=== PATIENT | male | born 1960 | race Caucasian/White ===

== ENCOUNTER 2024-01-26 22:12 | Observation (INO) | payer BC, SELFPAY ==
[2024-01-26 15:57] VITALS: BP 121/77
--- NOTE | 2024-01-26 18:23 | ED.GENMED ---
History of Present Illness
General
Chief Complaint: Fall
Source: patient
Exam Limitations: none
Time Seen by Provider: 01/26/24 18:02
History of Present Illness
History of Present Illness:
64-year-old male presents after a fall last evening. He was helping his dog get outside and he hit his head on the radiator. He lost a significant amount of blood at home secondary to laceration to his superior scalp. He is on Plavix. There is
potential loss of consciousness. He notes a slight headache and slight neck pain. No other complaints
Past History
Past History
ED Past Medical History: CAD, HTN, Hypercholesterolemia and AL
ED Past Surgical History: Cardiac (cath w/ 3 stents), Cholecystectomy and Other (RIH repair as child)
Social History
Tobacco: Non-smoker
Personal:
Living: with family
Employment: Employed
Phy Exam
Physical Exam
Physical Exam:
General: Well-appearing male no acute respiratory distress
HEENT: Normocephalic 10 cm flap type laceration superior posterior scalp. No active bleeding but large clots noted in the wound pupils equal round reactive to light
Heart: Regular rate and rhythm no murmur
Lungs: Clear no wheeze
Neurologic exam: Alert and oriented x 3
Musculoskeletal exam: Mild diffuse paraspinous tenderness about the cervical spine no deformities to the extremities
Course
Orders/Labs/Results
Orders:
Orders
01/26/24 15:35
CT Head W/o Iv Contrast Urgent
Comment: denies loc
Reason For Exam: fell last night and hit head. pt on plavix
01/26/24 15:39
CT Cervical Spine W/o Iv Contr Urgent
Comment:
Reason For Exam: fell hit head and c/o neck discomfort
01/26/24 18:25
Complete Blood Count/With Diff Urgent
Comprehensive Metabolic Panel Urgent
01/26/24 18:55
Electrocardiogram (*1) Urgent
Reason for Study: Other
Other Reason for Exam: Hyperkalemia
EKG- Treatment ONCE
01/26/24 19:01
Protime/PTT Urgent
01/26/24 19:33
Furosemide [Lasix] 40 mg IV NOW STA
01/27/24 00:05
Potassium Urgent
Comment: draw 4 hours after furosemide administered
01/27/24 06:00
Sodium Zirconium Cyclosilicate [Lokelma] 10 gram PO TID@0600,1400,1800
01/27/24 08:00
Nicotine [Nicoderm Transdermal] 21 mg TRANSDERM DAILY
Abnormal Lab Results
01/26/24
18:25
WBC 17.5 H 10^3/uL
(4.8-10.8)
RBC 3.41 L 10^6/uL
(4.70-6.10)
Hgb 11.5 L g/dL
(13.0-18.0)
Hct 31.0 L %
(39.0-52.0)
MCH 33.7 H pg
(27.0-31.0)
MCHC 37.1 H g/dL
(33.0-37.0)
Abs Immat Gran (auto) 0.1 H 10^3/uL
(0-0.05)
Absolute Neuts (auto) 14.9 H 10^3/uL
(1.4-6.5)
Absolute Lymphs (auto) 1.1 L 10^3/uL
(1.2-3.4)
Absolute Monos (auto) 1.0 H 10^3/uL
(0.1-0.6)
Immature Gran % 0.6 H %
(0-0.5)
Neutrophils % 87.0 H %
(42.2-75.2)
Lymphocytes % 6.3 L %
(20.5-51.1)
Sodium 129 L mmol/L
(135-145)
Potassium 6.0 H mmol/L
(3.5-5.1)
Carbon Dioxide 21 L mmol/L
(22-30)
Glucose 140 H mg/dl
(70-99)
01/26/24 18:25
01/26/24 18:25
Vital Signs
Initial and Last Documented VS:
Initial Vital Signs
Temp Pulse Resp BP Pulse Ox
98.6 F 116 20 121/77 96
01/26/24 15:57 01/26/24 15:57 01/26/24 15:57 01/26/24 15:57 01/26/24 15:57
Last Documented Vital Signs
Temp Pulse Resp BP Pulse Ox
98.6 F 116 20 121/77 96
01/26/24 15:57 01/26/24 15:57 01/26/24 15:57 01/26/24 15:57 01/26/24 15:57
MDM/Problems Addressed
Differential Diagnosis Includes:
Fall with scalp laceration. Consider significant blood loss given the pictures family showed me. Will check labs. CT of the head and cervical spine were ordered which are negative for acute traumatic injury. The wound was thoroughly cleansed and
all clot was removed from the wound and closed with skin chelo. This was anesthetized with 1% lidocaine with epinephrine prior to doing so. A total of 11 chelo were placed
Labs pending.
*Critical Care Note
Total Time (30-74mins, 75-104mins- exclusive of procedures): Not Applicable
Update Note
Update Note:
Review of labs demonstrate leukocytosis with a white blood cell count of 17. Hemoglobin 11.5 however potassium is 6.0. EKG shows sinus rhythm without changes otherwise. Ordered Lasix and Corakelma for his potassium admit to hospital for hyperkalemia
ED Attending Note
-
Portions of this chart may have been created with voice recognition software.� Occasional wrong word or��sound alike� substitutions may have occurred due to the inherent limitations of voice recognition software.
Discharge Plan
Departure
Patient Disposition: Admit
Date of Disposition: 01/26/24
Time of Disposition: 19:49
Admit to: Telemetry
Presentation/result/management discussed w/ accepting MD/DO: Hospitalist
Discharge Problem:
Acute hyperkalemia
Prescriptions:
No Action
losartan 50 MG tablet
50 mg PO HS
Patient Comments:
09/18/17 per pt spouse accidentally threw out bottle waiting for insurance approval that is why it hasnt been 3 weeks since the last dose
aspirin 81 MG tablet,delayed release (DR/EC)
81 mg PO HS
metoprolol tartrate 50 MG tablet
50 mg PO HS
Patient Comments:
09/18/17 rx for metoprolol tartrate 50mg BID , but patient only takes onet tablet at bedtime
rosuvastatin 10 MG tablet
10 mg PO HS
Patient Comments:
take 1 tablet by mouth once daily
acetaminophen 325 MG tablet
650 mg PO Q4HPRN PRN (Reason: mild to moderate pain) Qty: 0 0RF
polyethylene glycol 3350 17 GRAMS powder in packet
17 grams PO DAILYPRN PRN (Reason: constipation) Qty: 0 0RF
ibuprofen 200 MG tablet
400 - 600 mg PO Q6HPRN PRN (Reason: mild to moderate pain) Qty: 0 0RF
amoxicillin-pot clavulanate 1 TABLET tablet
1 tab PO Q12 Qty: 8 0RF
Referrals:
Xavier Tenorio DO [Family Provider] -
Interventions
Interventions:
*Risk Screen - Suicide Last Done: 01/26/24 18:19
*Neglect/Abuse Screening Last Done: 01/26/24 18:19
ED- Fall Risk Assessment Last Done: 01/26/24 19:44
*ED COVID-19 Vaccine History Last Done: 01/26/24 15:57
ED-Musculoskeletal Assessment Last Done: 01/26/24 18:18
ED- Neurological Assessment Last Done: 01/26/24 18:18
ED-Skin Assessment Last Done: 01/26/24 18:18
Discharge Date and Time
Print Language: TELUGU
[2024-01-26 18:36] LABS: % Basophils 0.2 % (0-2); % Eosinophils 0.1 % (0-6); % Immature Granulocytes 0.6 % (0-0.5); % Lymphocytes 6.3 % (20.5-51.1); % Monocytes 5.8 % (1.7-9.3); Absolute Immature Granulocytes 0.1 10^3/uL (0-0.05); Absolute Lymphocytes 1.1 10^3/uL (1.2-3.4); Absolute Neutrophils 14.9 10^3/uL (1.4-6.5); Hemoglobin 11.5 g/dL (13.0-18.0); Mean Corp Hgb Conc. 37.1 g/dL (33.0-37.0); Mean Corpuscular Hgb 33.7 pg (27.0-31.0); Mean Corpuscular Volume 90.9 fL (80.0-94.0); Nucleated Red Blood Cells % 0 % (-); Red Blood Cell Count 3.41 10^6/uL (4.70-6.10); Red Cell Dist. Width 13.2 % (11.5-14.5); White Blood Cell Count 17.5 10^3/uL (4.8-10.8)
[2024-01-26 18:47] LABS: ALT (SGPT) 22 U/L (0-50); AST (SGOT) 24 U/L (17-59); Albumin 4.1 g/dl (3.5-5.0); Alkaline Phosphatase 73 U/L (38-126); Blood Urea Nitrogen 14 mg/dl (9-20); Calcium 9.1 mg/dl (8.4-10.2); Carbon Dioxide 21 mmol/L (22-30); Chloride 98 mmol/L (98-107); Glucose 140 mg/dl (70-99); Sodium 129 mmol/L (135-145); Total Protein 6.4 g/dl (6.3-8.2); eGFR > 60.00
[2024-01-26 19:26] LABS: INR 1.06; PT 13.6 Sec (11.4-14.6)
[2024-01-26 19:27] LABS: APTT 28.5 Sec (23.4-35.0)
[2024-01-26] MEDS: NICODERM TRANSDERMAL 21 MG TRANSDERM (20:22)
--- NOTE | 2024-01-26 20:52 | HPS.HSE ---
Family Physician
-
Family Physician: Xavier Tenorio
Chief Complaint
-
Fall at Home
History of Present Illness
Patient is a 64y M with PMH significant for ASCVD and hypertension who presents to ED complaining of bleeding s/p fall at home. Patient states that he was letting his dog out around 2 AM today when he fell (was pushed forward by his dog) and
struck his head on a metal baseboard. Patient had significant bleeding overnight. He denies any LOC or other areas of injury. Given his marked blood loss overnight patient was encouraged by family to present to the ED today for evaluation.
Patient denies any complaints at present with exception of some head / scalp discomfort at site of injury. No chest pain / dyspnea.
He has known CAD and has had multiple stents - most recent was about 3 1/2 months ago at [facility].
He is supposed to be on ASA and Plavix. He states that he never takes ASA due to easy bruising. He takes Plavix sometimes - his last dose was Sunday of this week.
Medical History
Past Medical History
Past Medical History: Reports Other
Additional Past Medical History:
ASCVD
Hypertension
CASI
Past Surgical History: Reports Other
Additional Past Surgical History:
PTCA with Stents (multiple - most recent 3 1/2 months ago)
Appendectomy
Cholecystectomy
Inguinal Herniorrhaphy
Arthroscopy of the Knee
Social History
Tobacco: Smoker (Current every day smoker. > 40 pack years total use.)
Alcohol: Daily (1-2 drinks daily.)
Drug: None
Family History
Family History: Not pertinent
Allergies / Home Medications
Allergies reflects when Allergies were last updated in [employer].
Home Medications with original date entered in [employer]
Allergy/Medication List:
Allergies
Allergy/AdvReac Type Severity Reaction Status Date / Time
No Known Allergies Allergy Verified 01/26/24 16:03
Home Medications
acetaminophen 325 mg tablet 650 mg (2 x 325 mg) PO Q4HPRN PRN mild to moderate pain #0 tabs 09/18/17
amoxicillin 875 mg-potassium clavulanate 125 mg tablet 1 tab PO Q12 antibiotic #8 tabs 09/18/17
aspirin 81 mg tablet,delayed release 81 mg PO HS 09/18/17
ibuprofen 200 mg tablet 400 - 600 mg (2 - 3 x 200 mg) PO Q6HPRN PRN mild to moderate pain #0 tabs 09/18/17
losartan 50 mg tablet 50 mg PO HS 09/18/17
metoprolol tartrate 50 mg tablet 50 mg PO HS 09/18/17
polyethylene glycol 3350 17 gram oral powder packet 17 grams PO DAILYPRN PRN constipation #0 packets 09/18/17
rosuvastatin 10 mg tablet 10 mg PO HS 09/18/17
Review of Systems
-
History Source: Patient
A 12 point ROS was completed and negative except as noted: Yes
Constitutional: Reports Fatigue; Denies Fever or Chills
Respiratory: Denies Cough or Trouble Breathing
Cardiac: Denies Chest Pain or Palpitations
Abdomen/GI: Denies Abdominal Pain, Nausea, Vomiting or Diarrhea
: Denies Dysuria or Frequency
Skin: Reports Other (Scalp laceration / bleeding.)
Neurological: Denies Dizzy, Headache, Weakness or Numbness
Psych: Denies Depression or Anxiety
Physical Exam
Vital Signs
Vital Signs
Temp Pulse Resp BP Pulse Ox
98.6 F 116 20 121/77 96
01/26/24 15:57 01/26/24 15:57 01/26/24 15:57 01/26/24 15:57 01/26/24 15:57
Physical Exam
General: Other (64y M in no acute distress.)
HEENT: Moist mucous membranes, PERRLA and Other (Large laceration over the apex of the scalp / posteriorly with [address] No evidence of ongoing bleeding.)
Respiratory: Clear; No Wheezes, Rales or Rhonchi
Cardiac: S1/S2 and Regular Rhythm; No Murmur
GI: Soft, Non Tender, Non Distended and Normal Bowel Sounds
Musculoskeletal: No Clubbing, No Cyanosis and No Edema
Neuro: AO x 3
Laboratory Results
-
01/26/24 18:25
01/26/24 18:25
Laboratory Results
PT 13.6 Sec (11.4-14.6) 01/26/24 19:
INR 1.06 01/26/24 19:
APTT 28.5 Sec (23.4-35.0) 01/26/24 19:01
Total Bilirubin 1.0 mg/dl (0.2-1.3) 01/26/24 18:25
AST 24 U/L (17-59) 01/26/24 18:25
ALT 22 U/L (0-50) 01/26/24 18:25
Alkaline Phosphatase 73 U/L (38-126) 01/26/24 18:25
Impression/Plan
-
A/P: Patient is a 64y M with PMH significant for ASCVD and hypertension who presets to ED for evaluation of scalp laceration s/p fall at home.
Fall at Home
Scalp Laceration
Acute Blood Loss Anemia secondary to the above
- Observe overnight for further evaluation and treatment.
- Laceration closed with chelo in the ED - no active bleeding.
- Significant blood loss overnight and suspect Hgb is lower than initial noted 11.5 due to volume contraction.
- Follow H&H and transfuse if needed.
- Hold Plavix.
- CT head and C-Spine in the ED were unremarkable.
Hyperkalemia
Hyponatremia
- Suspect secondary to hypovolemia / volume losses.
- ? if patient is on ARB at home. He is on 'blood pressure med' but does not known the name.
- Would hold for now in any event.
- IVFs overnight and follow for improvement in labs / lytes.
- Monitor on telemetry overnight.
- EKG done in the ED with no changes of hyperkalemia.
ASCVD
- Stable. No chest pain / dyspnea.
- Patient with most recent stent placed within the past 6 months.
- Hold Plavix for now as noted above (patient has been poorly compliant with his prescribed antiplatelets as an outpatient).
- Would continue with ASA 81mg daily for now.
- Reconcile other meds in the AM and resume - except for VISH / ARB as noted above.
Benign Hypertension
- Patient is unsure which BP medication he is currently on.
- Reconcile meds with pharmacy in the AM.
DVT Prophylaxis: SCDs
Code Status: Full
[2024-01-26 22:13] VITALS: BP 136/73
[2024-01-26] MEDS: NSS 1000 IV (23:18)
[2024-01-26 23:36] VITALS: BP 125/82; BP 152/80; BP 97/68; PULSE 109; PULSE 112; PULSE 128; BMI 27.7
[2024-01-27] MEDS: TYLENOL 650 MG PO (02:26)
[2024-01-27 03:24] VITALS: BP 139/65
[2024-01-27 04:25] LABS: Hematocrit 25.5 % (39.0-52.0); Hemoglobin 9.4 g/dL (13.0-18.0); Mean Corpuscular Hgb 34.9 pg (27.0-31.0); Mean Corpuscular Volume 94.4 fL (80.0-94.0); Mean Platelet Volume 11.6 fL (7.4-10.4); Platelet Count 119 10^3/uL (130-400); Red Blood Cell Count 2.69 10^6/uL (4.70-6.10); White Blood Cell Count 10.2 10^3/uL (4.8-10.8)
[2024-01-27 04:39] LABS: Blood Urea Nitrogen 14 mg/dl (9-20); Calcium 8.6 mg/dl (8.4-10.2); Carbon Dioxide 24 mmol/L (22-30); Chloride 104 mmol/L (98-107); Estimated Creatinine Clearance 111 ml/min; Glucose 127 mg/dl (70-99); Potassium 4.5 mmol/L (3.5-5.1); Sodium 134 mmol/L (135-145); eGFR > 60.00
[2024-01-27 07:55] VITALS: BP 127/72
[2024-01-27] MEDS: NSS 1000 IV (08:06)
[2024-01-27] MEDS: LOW STRENGTH ASPIRIN 81 MG PO (08:06)
--- NOTE | 2024-01-27 09:03 | W.PN.HOSP.TC ---
Today's Communication/Plan
-
Obtain home medication list
Compression stockings
Possible discharge
Assessment / Plan
Assessment / Plan
Gen-AAOx3, NAD
HEENT-NC, AT, anicteric, clear oral mm
Neck-supple
CV-reg, no M, +S1/S2
Lungs-clear B/L
Abd-soft, NT, ND
Ext-no edema
Musculoskeletal-no cyanosis, clubbing
Skin-warm and dry, posterior scalp laceration with chelo intact, no drainage
Neuro-grossly non-focal
Psych-calm, cooperative
Acute blood loss anemia -likely due to scalp laceration due to fall and trauma. Hemodynamically stable. Baseline hemoglobin unknown. Admission hemoglobin 11.5 yesterday, 9.4 this morning. Recommend CBC in 3 to 4 days as an outpatient.
Posterior scalp laceration - traumatic and due to fall prior to admission. Patient blames his dog for the fall. Unclear if patient was under the influence of alcohol at the time of the fall. Possible contribution from orthostatic hypotension to
the fall. He does admit to drinking 3-4 beers at a time. Wound looks intact, chelo are holding. No drainage. Chelo to come out in 10 days, follow-up with PCP. Discussed with patient.
Last tetanus immunization documented as less than 5 years ago.
Orthostatic hypotension -systolic blood pressure drops 20 mmHg with standing. TEDs stockings ordered.
Alcohol use disorder -drinks about 3-4 beers at a time. Denies drinking daily. Recommend cutting down to 1-2 beers in 1 day max. Discussed with patient.
Tobacco dependence -smoking cessation advised, especially in light of coronary disease.
CAD -with multiple stents. Last catheterization was 3-1/2 months ago. Noncompliant with aspirin and Plavix due to bruising. Discussed in detail with patient that compliance is essential especially in light of previous coronary stenting and high
risk for stent occlusion, thrombosis if he is noncompliant with dual antiplatelet therapy. Patient demonstrated understanding. Recommend close follow-up with his tank calibrator at [facility].
Thrombocytopenia -unclear if due to consumption due to bleeding versus other etiology. Recommend CBC follow-up as an outpatient.
Leukocytosis -present on admission. Resolved. No signs or symptoms of infection. Afebrile.
Hyponatremia -likely hypovolemic. Improving.
Hyperkalemia -resolved. Given Lokelma in the emergency room. Please obtain home medication list. He may be taking losartan.
Hyperlipidemia
Essential hypertension -stable.
CASI
Full code
Dispo -possible discharge home today. Patient requesting to surge, complaints that he is feeling anxious in the hospital. Awaiting orthostatic vital sign check. Please obtain home medication list, discussed with nurse.
32 minutes spent in discharge process.
Anticipated Discharge: Today
Subjective/Interval History
-
Date of Service: January 27, 2024
Patient seen and examined. Complaining of anxiety.
Objective Data
-
Labs:
Laboratory Results
01/27/24 01/27/24
04:11 04:11
WBC 10.2
Hgb 9.4 L
Hct 25.5 L
Plt Count 119 L
Sodium 134 L
Potassium Cancelled 4.5
Chloride 104
Carbon Dioxide 24
BUN 14
Creatinine 0.8
Glucose 127 H
Calcium 8.6
Vital Signs:
Vital Signs
Temp Pulse Resp BP Pulse Ox
97.8 F 96 16 127/72 97
01/27/24 07:55 01/27/24 07:55 01/27/24 07:55 01/27/24 07:55 01/27/24 07:55
I&O
01/26/24 01/27/24 01/28/24
06:59 06:59 06:59
Intake Total 240 / 240
Balance 240 / 240
Review of Systems
-
History Source: Patient
All other systems: Reviewed and negative
[2024-01-27 09:07] VITALS: BP 116/70; BP 118/69; BP 138/74; PULSE 85; PULSE 97; PULSE 99
[2024-01-27 12:15] VITALS: BP 120/64
--- NOTE | 2024-01-27 13:00 | W.DS.TRANS ---
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
-
Discharge Instructions:
Discharge Diagnosis/Procedures Scalp laceration, acute blood loss anemia,
orthostatic hypotension
Diet Low Cholesterol,Low Fat
Activity As tolerated
Driving Restrictions As prior to admission
Bathing Restrictions None
Blood Work CBC, BMP in 3-4 days
Instructions:
Stand-Alone Forms:
Changes to Home Medications: No
Discharge Medications:
DC Medications w/original date entered in [employer]
acetaminophen 325 mg tablet 650 mg (2 x 325 mg) PO Q4HPRN PRN mild to moderate pain #0 tabs 09/18/17
aspirin 81 mg tablet,delayed release 81 mg PO HS Blood Clot Prevention/Tx 09/18/17
metoprolol tartrate 50 mg tablet 50 mg PO HS Blood Pressure 09/18/17
rosuvastatin 10 mg tablet 10 mg PO HS High Cholesterol 09/18/17
clopidogrel 75 mg tablet (Plavix) 75 mg PO DAILY Blood Clot Prevention/Tx #30 tabs 01/27/24
Home Medication Changes
Pending Results: No
[2024-01-27] MEDS: NSS IV (13:07)
--- NOTE | 2024-01-27 14:44 | CM ---
Angel was admitted yesterday due to a head laceration with bleeding that would not stop. This was sustained while he was letting his dog outside, but was pushed over by the dog, leading to the head wound.
He is cleared to return to home today with his spouse; both are (I) amb and adls.
Plan: Discharge to home today with no identified needs.
== END 2024-01-27 13:51 | disposition home or self-care (01) ==
LOC: 4 WEST ACU 22:12
PROVIDERS: Physician Assistant; ADMITTING PHYSICIAN Hospitalist; ATTENDING PHYSICIAN Hospitalist; EMERGENCY PHYSICIAN Student in an Organized Health Care Education/Training Program; FAMILY PHYSICIAN Family Medicine
DX: S01.01XA Laceration without foreign body of scalp, initial encounter (principal); D62 Acute posthemorrhagic anemia; R51.9 Headache, unspecified; W01.198A Fall on same level from slipping, tripping and stumbling with subsequent striking against other object, initial encounter; Y93.K1 Activity, walking an animal; Y92.009 Unspecified place in unspecified non-institutional (private) residence as the place of occurrence of the external cause; D69.6 Thrombocytopenia, unspecified; I95.1 Orthostatic hypotension; E78.00 Pure hypercholesterolemia, unspecified; I10 Essential (primary) hypertension; I25.10 Atherosclerotic heart disease of native coronary artery without angina pectoris; I25.2 Old myocardial infarction; E87.5 Hyperkalemia; F17.210 Nicotine dependence, cigarettes, uncomplicated; E87.1 Hypo-osmolality and hyponatremia; M47.812 Spondylosis without myelopathy or radiculopathy, cervical region; R94.31 Abnormal electrocardiogram [ECG] [EKG]; F10.10 Alcohol abuse, uncomplicated; D72.829 Elevated white blood cell count, unspecified; E78.5 Hyperlipidemia, unspecified; G47.33 Obstructive sleep apnea (adult) (pediatric); Z79.02 Long term (current) use of antithrombotics/antiplatelets; Z95.5 Presence of coronary angioplasty implant and graft; Z79.82 Long term (current) use of aspirin; Z90.49 Acquired absence of other specified parts of digestive tract; Z91.148 Patient's other noncompliance with medication regimen for other reason
CPT/HCPCS: 12004; 70450; 72125; 80048; 80053; 85025; 85027; 85610; 85730; 93005; 96374; 99285; G0378